=== PATIENT | female | born 1980 ===

== ENCOUNTER 2023-04-15 18:39 | Emergency (ER) | payer SELFPAY ==
[2023-04-15 18:41] VITALS: BP 134/67; PULSE 82; RESP 18; TEMP 36.1; O2SAT 100; BMI 34.4
--- NOTE | 2023-04-15 18:41 | DI.RAD.S_ITS ---
PROCEDURE: XR CHEST 1V INDICATIONS: chest pain TECHNIQUE: One view of the chest was acquired. COMPARISON: None. FINDINGS: Surgical changes and devices: None. Lungs and pleura: Lungs are clear. No pleural effusions or pneumothorax. Mediastinum: Mediastinal contours appear normal. Heart size is normal. Bones and chest wall: No suspicious bony lesions. Overlying soft tissues appear unremarkable. IMPRESSION: No acute cardiopulmonary process. Dictated by: Pee Kelsey M.D. on 04/15/2023 at 19:19 Approved by: Pee Kelsey M.D. on 04/15/2023 at 19:19
[2023-04-15 18:54] LABS: Add Manual Diff / Slide Review NO; Basophils Absolute Auto 100 /uL (0-100); Basophils Percent Auto 0.4 % (0-2); Eosinophils Absolute Auto 100 /uL (0-450); Eosinophils Percent Auto 0.8 % (2-4); Hematocrit 39.4 % (36-46); Hemoglobin 13.3 g/dL (12.0-16.0); Lymphocytes Absolute Auto 4800 /uL (1100-4500); Lymphocytes Percent Auto 30.5 % (25-40); Mean Corpuscular HGB Conc 33.7 % (30-36); Mean Corpuscular Hemoglobin 28.5 PG (26-34); Mean Corpuscular Volume 84.5 fL (80-100); Monocytes Absolute Auto 1000 /uL (0-900); Monocytes Percent Auto 6.1 % (3-14); Neutrophils Absolute Auto 9800 /uL (1500-7000); Neutrophils Percent Auto 62.2 % (50-75); Platelet Count 314 X10^3/uL (150-400); Red Blood Cell Count 4.66 X10^6/uL (4.0-5.2); Red Cell Distribution Width 14.4 % (11.6-14.8); White Blood Cell Count 15.8 X10^3/uL (4.5-11.0)
[2023-04-15 19:02] LABS: Prothrombin Time 11.5 SECONDS (10.1-12.7)
[2023-04-15 19:05] LABS: PTT Partial Thromboplastin Tim 27 SECONDS (26-36)
[2023-04-15 19:07] LABS: Alanine Aminotransferase 19 IU/L (<35); Albumin 4.3 g/dL (3.5-5.0); Albumin Globulin Ratio 1.3 (1.0-2.8); Alkaline Phosphatase 90 U/L (38-126); Aspartate Aminotransferase 26 IU/L (14-36); BUN Creatinine Ratio 23.1 (6-22); Bilirubin Total 0.3 mg/dL (0.2-1.3); Blood Urea Nitrogen 12 mg/dL (7-17); Carbon Dioxide 23 mmol/L (22-32); Chloride 105 mmol/L (98-107); Creatine Kinase 94 U/L (30-135); Estimated Glomerular Filt Rate > 60 mL/min (>60); Globulin 3.4 g/dL (1.7-4.1); Glucose 114 mg/dL (70-100); HEMOLYSIS < 15 (0-50); Lipase 119 U/L (23-300); Magnesium 1.9 mg/dL (1.6-2.3); Potassium 3.3 mmol/L (3.4-5.1); Sodium 137 mmol/L (137-145); Total Protein 7.7 g/dL (6.3-8.2)
[2023-04-15 19:18] LABS: Troponin I < 0.012 ng/mL (0.01-0.034)
--- NOTE | 2023-04-15 19:47 | DI.CT.S_ITS ---
PROCEDURE: CT ANGIO HEAD AND NECK INDICATIONS: seizure and headache and weakness TECHNIQUE: After the administration of intravenous contrast, 1 mm thick sections acquired from the aortic arch through the [place] of [place]. 3-dimensional xdnemia-cgbgcozca-vzzwvlrzxh (MIP) and/or volume rendering reformats were acquired of the central intracranial vasculature and neck separately. For radiation dose reduction, the following was used: automated exposure control, adjustment of mA and/or kV according to patient size. COMPARISON: [facility], CT, CT HEAD/BRAIN WO [facility], 04/15/2023, 19:56. FINDINGS: Image quality: Diagnostic. BRAIN: CSF spaces: Ventricles are normal in size and shape. Basal cisterns are patent. No extra-axial fluid collections. Brain: No significant abnormality of the brain can be seen. Skull and face: Calvarium and facial bones appear intact, without suspicious lesions. Orbits appear normal. Sinuses: Sinuses and mastoids are clear. HEAD CT ANGIOGRAPHY: Anterior circulation: Intracranial internal carotid arteries are normal in size and flow. The flow within the paired anterior cerebral arteries is normal and symmetric. The flow within the middle cerebral arteries is normal and symmetric. The anterior communicating artery is seen. No aneurysms are seen. Posterior circulation: Visualized portions of the vertebral arteries demonstrate normal caliber, and join to form a normal appearing basilar artery. Flow within the posterior cerebral arteries is normal and symmetric. No aneurysms are seen. NECK CT ANGIOGRAPHY: Carotid system: The great vessels demonstrate a conventional anatomy as they arise from the aortic arch. The origins of the common carotid arteries appear patent. The common carotid arteries demonstrate normal caliber and courses. The bifurcation regions are both widely patent. The internal carotid arteries demonstrate normal calibers and courses. Posterior circulation: The origins of the vertebral arteries both appear widely patent. The more superior extracranial portions of both vertebral arteries also demonstrate normal courses and calibers. They join to form a normal appearing basilar artery. Soft tissues: Visualized neck soft tissues demonstrate no suspicious abnormalities. Bones: No suspicious bony lesions. Visualized cervical spine appears normally aligned. IMPRESSION: No acute intracranial abnormality. No hemodynamically significant arterial stenosis or large vessel occlusion in the head or neck. Any quantitative measurements of stenosis were performed using NASCET criteria. Approved by: Aaron Yates M.D. on 04/15/2023 at 20:30
--- NOTE | 2023-04-15 19:47 | DI.CT.S_ITS ---
PROCEDURE: CT HEAD/BRAIN WO CON INDICATIONS: seizure and headache TECHNIQUE: Noncontrast 4.5 mm thick angled axial sections acquired from the foramen magnum to the vertex, with coronal and sagittal reformats. For radiation dose reduction, the following was used: automated exposure control, adjustment of mA and/or kV according to patient size. COMPARISON: None. FINDINGS: Image quality: Mild streak artifact can be seen through the skull base. CSF spaces: Basal cisterns are patent. No extra-axial fluid collections. Ventricles are normal in size and shape. Brain: No midline shift. No intracranial masses or hemorrhage. Wilson-white matter interface is normal. Skull and face: Calvarium and visualized facial bones are intact, without suspicious lesions. Sinuses: Visualized sinuses and mastoids are clear. IMPRESSION: Noncontrast head CT within normal limits. Dictated by: Davis Pace M.D. on 04/15/2023 at 19:21 Approved by: Davis Pace M.D. on 04/15/2023 at 19:22
--- NOTE | 2023-04-15 19:47 | ED_ITS ---
HPI - Seizure <DO Colten Painter Last Filed: 04/16/23 19:32> General Chief Complaint: Seizure Stated Complaint: unresponsive in lobby Time Seen by Provider: 04/15/23 18:53 Source: patient and family Mode of arrival: Wheelchair Limitations: language barrier History of Present Illness HPI Narrative: Patient is a 42-year-old female. She is otherwise healthy. No prior history of seizures. She was in the emergency department waiting room with her son who is waiting to be seen for cut on his arm. It was reported that while she was waiting in the waiting rooms there was a sudden episode of what appeared to be seizure-like activity. The patient became unresponsive. She was found to be pale and diaphoretic and confused by nursing staff. She was immediately brought back to the emergency department. She speaks a small amount of Setswana. I offered the translation line but family stated that they were comfortable translating and declined the offer. Family reported that the patient has no prior history of seizures. There was no loss of bowel or bladder. They are unsure the exact circumstances because this seemed to happened fairly quickly. The patient does not specifically remember the event or remember any prodromal symptoms. She states she is having a headache and also neck pain. She reports no extremity pain. Denies chest pain, shortness of breath or nausea or vomiting. When I evaluated the patient she was alert and oriented but was somewhat confused about the event that brought her here to the ER. Related Data Allergies Allergy/AdvReac Type Severity Reaction Status Date / Time No Known Drug Allergies Allergy Verified 04/15/23 18:43 Review of Systems <DO Colten Painter Last Filed: 04/16/23 19:32> Review of Systems ROS Unobtainable: All systems reviewed & are unremarkable except as noted in HPI and below Patient History <DO Colten Painter Last Filed: 04/16/23 19:32> Social History Smoking Status: Never smoker Smoking Status: Never smoker Substance Use Type: does not use Exam <DO Colten Painter Last Filed: 04/16/23 19:32> Initial Vital Signs Initial Vital Signs: Vital Signs Temperature 97 F L 04/15/23 18:41 Pulse Rate 82 04/15/23 18:41 Respiratory Rate 18 04/15/23 18:41 Blood Pressure 134/67 08/22/23 18:41 Pulse Oximetry 100 04/15/23 18:41 Oxygen Delivery Method Room Air 04/15/23 18:41 Const General: comfortable and No ill appearing HENMT Head: normal to inspection and normocephalic Face and sinus: normal facial exam Mouth: oral mucosae normal Eyes Pupils: PERRL Chest Chest: No crepitus Resp Effort & Inspection: normal respiratory effort Auscultation: clear to auscultation bilaterally Cardio Rate: regular rate Rhythm: regular rhythm GI Inspection: normal to inspection and non-distended Palpation: soft Back/Spine/Pelvis Cervical Spine: cervical muscular tenderness and cervical spinal tenderness Skin General: no rashes or lesions noted Neuro General: patient alert and patient awake Cognition: normal cognition Other: Patient is 5/5 strength bilateral upper extremities. Patient is unable to move lower extremities. She is unable to hold them up off the bed. She reports being able to feel anything on her lower extremities. This seems to extend from the umbilicus down. Extrem General: normal to inspection and capillary refill normal <Piotr Isbell DO - Last Filed: 04/18/23 06:48> Initial Vital Signs Initial Vital Signs: Vital Signs Temperature 97 F L 04/15/23 18:41 Pulse Rate 82 04/15/23 18:41 Respiratory Rate 18 04/15/23 18:41 Blood Pressure 134/67 04/15/23 18:41 Pulse Oximetry 100 04/15/23 18:41 Oxygen Delivery Method Room Air 04/15/23 18:41 Scores <Quincy Proctor DO - Last Filed: 04/16/23 19:32> GCS [place] coma scale eye opening: Spontaneous [place] coma scale verbal response: Orientated [place] coma scale motor response: Obey commands [place] coma scale total score: 15 <Piotr Isbell DO - Last Filed: 04/18/23 06:48> GCS [place] coma scale total score: 15 Course <Quincy Proctor DO - Last Filed: 04/16/23 19:32> Orders Ordered: Discontinued Medications Hydrocodone Bitart/Acetaminophen (Hydrocodone/Acet 5/325 Tablet) 1 tab PO NOW ONE Stop: 04/15/23 23:01 Last Admin: 04/15/23 23:06 Dose: 1 tab Documented By: ELSA Ketorolac Tromethamine (Ketorolac 30 Mg/Ml Vial) 30 mg IV NOW ONE Stop: 04/15/23 22:23 Last Admin: 04/15/23 22:28 Dose: 30 mg Documented By: ELSA Vital Signs Vital signs: Vital Signs - 8 hr 04/16/23 12:00 04/16/23 12:00 Pulse Rate 69 Respiratory Rate 16 Blood Pressure 105/52 L Pulse Oximetry 99 <Piotr Isbell DO - Last Filed: 04/18/23 06:48> Orders Ordered: Discontinued Medications Hydrocodone Bitart/Acetaminophen (Hydrocodone/Acet 5/325 Tablet) 1 tab PO NOW ONE Stop: 04/15/23 23:01 Last Admin: 04/15/23 23:06 Dose: 1 tab Documented By: ELSA Ketorolac Tromethamine (Ketorolac 30 Mg/Ml Vial) 30 mg IV NOW ONE Stop: 04/15/23 22:23 Last Admin: 04/15/23 22:28 Dose: 30 mg Documented By: ELSA Vital Signs Vital signs: Vital Signs - 8 hr 04/16/23 12:00 04/16/23 12:00 Pulse Rate 69 Respiratory Rate 16 Blood Pressure 105/52 L Pulse Oximetry 99 MDM - Seizure <Quincy Proctor DO - Last Filed: 04/16/23 19:32> Lab Data Attestation: I reviewed the patient's lab results. 04/15/23 18:46 04/15/23 18:46 Labs: Lab Results 04/15/23 04/15/23 04/15/23 Range/Units 18:46 18:46 18:46 WBC 15.8 H (4.5-11.0) X10^3/uL RBC 4.66 (4.0-5.2) X10^6/uL Hgb 13.3 (12.0-16.0) g/dL Hct 39.4 (36-46) % MCV 84.5 (80-100) fL MCH 28.5 (26-34) PG MCHC 33.7 (30-36) % RDW 14.4 (11.6-14.8) % Plt Count 314 (150-400) X10^3/uL Neut % (Auto) 62.2 (50-75) % Lymph % (Auto) 30.5 (25-40) % Polk % (Auto) 6.1 (3-14) % Eos % (Auto) 0.8 L (2-4) % Baso % (Auto) 0.4 (0-2) % Neut # (Auto) 9800 H (8499-9011) /uL Lymph # (Auto) 4800 H (9273-1092) /uL [place] # (Auto) 1000 H (0-900) /uL Eos # (Auto) 100 (0-450) /uL Baso # (Auto) 100 (0-100) /uL PT 11.5 (10.1-12.7) SECONDS INR 1.0 (0.9-1.3) APTT 27 (26-36) SECONDS Sodium 137 (137-145) mmol/L Potassium 3.3 L (3.4-5.1) mmol/L Chloride 105 (98-107) mmol/L Carbon Dioxide 23 (22-32) mmol/L BUN 12 (7-17) mg/dL Creatinine 0.52 (0.52-1.04) mg/dL Estimated GFR > 60 (>60) mL/min BUN/Creatinine Ratio 23.1 H (6-22) Glucose 114 H (70-100) mg/dL Calcium 9.0 (8.4-10.2) mg/dL Magnesium 1.9 (1.6-2.3) mg/dL Total Bilirubin 0.3 (0.2-1.3) mg/dL AST 26 (14-36) IU/L ALT 19 (<35) IU/L Alkaline Phosphatase 90 (38-126) U/L Total Creatine Kinase 94 (30-135) U/L Troponin I < 0.012 (0.01-0.034) ng/mL Total Protein 7.7 (6.3-8.2) g/dL Albumin 4.3 (3.5-5.0) g/dL Globulin 3.4 (1.7-4.1) g/dL Albumin/Globulin Ratio 1.3 (1.0-2.8) Lipase 119 (23-300) U/L Imaging Data Chest x-ray: Radiologist's Impression: PROCEDURE:? XR CHEST 1V ? INDICATIONS:? chest pain ? TECHNIQUE:? One view of the chest was acquired.? ? COMPARISON:? None. ? FINDINGS:? ? Surgical changes and devices:? None.? ? Lungs and pleura:? Lungs are clear.? No pleural effusions or pneumothorax.? ? Mediastinum:? Mediastinal contours appear normal.? Heart size is normal.? ? Bones and chest wall:? No suspicious bony lesions.? Overlying soft tissues appear unremarkable.? ? IMPRESSION:? No acute cardiopulmonary process. CT scan - head: Radiologist's Impression: PROCEDURE:? CT HEAD/BRAIN WO CON ? INDICATIONS:? seizure and headache ? TECHNIQUE:? Noncontrast 4.5 mm thick angled axial sections acquired from the foramen magnum to the vertex, with coronal and sagittal reformats.? For radiation dose reduction, the following was used:? automated exposure control, adjustment of mA and/or kV according to patient size.? ? COMPARISON:? None. ? FINDINGS:? Image quality:? Mild streak artifact can be seen through the skull base. ? CSF spaces:? Basal cisterns are patent.? No extra-axial fluid collections.? Ventricles are normal in size and shape.? ? Brain:? No midline shift.? No intracranial masses or hemorrhage.? Wilson-white matter interface is normal.? ? Skull and face:? Calvarium and visualized facial bones are intact, without suspicious lesions.? ? Sinuses:? Visualized sinuses and mastoids are clear.? ? ? IMPRESSION:? Noncontrast head CT within normal limits. CTA - brain/neck: Radiologist's Impression: PROCEDURE:? CT ANGIO HEAD AND NECK ? INDICATIONS:? seizure and headache and weakness ? TECHNIQUE:? After the administration of intravenous contrast, 1 mm thick sections acquired from the aortic arch through the [place] of [place].? 3-dimensional giuqire-jmqmavrtw-akwvdqdcvi (MIP) and/or volume rendering reformats were acquired of the central intracranial vasculature and neck separately. For radiation dose reduction, the following was used:? automated exposure control, adjustment of mA and/or kV according to patient size.? ? COMPARISON:? [facility], CT, CT HEAD/BRAIN WO CON, 04/15/2023, 19:56. ? FINDINGS:? Image quality:? Diagnostic.? ? BRAIN:? CSF spaces:? Ventricles are normal in size and shape.? Basal cisterns are patent.? No extra-axial fluid collections.? ? Brain:? No significant abnormality of the brain can be seen. ? ? ? Skull and face:? Calvarium and facial bones appear intact, without suspicious lesions.? Orbits appear normal.? ? Sinuses:? Sinuses and mastoids are clear.? ? HEAD CT ANGIOGRAPHY:? Anterior circulation:? Intracranial internal carotid arteries are normal in size and flow.? The flow within the paired anterior cerebral arteries is normal and symmetric.? The flow within the middle cerebral arteries is normal and symmetric.? The anterior communicating artery is seen.? No aneurysms are seen.? ? Posterior circulation:? Visualized portions of the vertebral arteries demonstrate normal caliber, and join to form a normal appearing basilar artery.? Flow within the posterior cerebral arteries is normal and symmetric.? No aneurysms are seen.? ? NECK CT ANGIOGRAPHY:? Carotid system:? The great vessels demonstrate a conventional anatomy as they arise from the aortic arch.? The origins of the common carotid arteries appear patent.? The common carotid arteries demonstrate normal caliber and courses.? The bifurcation regions are both widely patent.? The internal carotid arteries demonstrate normal calibers and courses.? ? Posterior circulation:? The origins of the vertebral arteries both appear widely patent.? The more superior extracranial portions of both vertebral arteries also demonstrate normal courses and calibers.? They join to form a normal appearing basilar artery.? ? Soft tissues:? Visualized neck soft tissues demonstrate no suspicious abnormalities.? ? Bones:? No suspicious bony lesions.? Visualized cervical spine appears normally aligned.? IMPRESSION:? No acute intracranial abnormality.? No hemodynamically significant arterial stenosis or large vessel occlusion in the head or neck. ? Any quantitative measurements of stenosis were performed using NASCET criteria.? ECG Data Attestation: I personally reviewed and interpreted this ECG as follows: Interpretation: Sinus rhythm Ventricular rate is 76 Normal axis Normal QRS Normal QTC No ST T wave changes MDM Narrative Medical decision making narrative: I did not specifically witnessed the seizure-like activity in the waiting room however according to bystanders did appear to be like a seizure. She has no history of seizures. There was no loss of bowel or bladder. She is afebrile. When I evaluated the patient she was alert and oriented but she was complaining of neck pain and headache. Her labs are unremarkable. The CT scan of her head and also CT angio of head and neck showed no acute pathology. I did consider Reinier's paralysis however her symptoms were bilateral lower extremities and not involving the upper extremities. She was given Toradol and then a [place]. Her headache and neck pain greatly improved if not almost completely resolved. During her time here in the emergency department the weakness and the decreased sensation that she was having in her lower extremities also resolved. She got to the point where she could lift both of her legs up off the bed. She stated that the sensation was back to normal. She was able to stand at bedside and take a few steps on her own however she was very unsteady with this. She was also complaining of some dizziness. I am unsure whether not this dizziness was related to the [place] or potentially the events that led her to being admitted to the emergency department. Patient does not have a primary care doctor. I feel given the unusual circumstances of her presentation to include never having history of seizures, the bilateral lower extremity weakness (that has now r esolved) the posterior headache and neck pain (that has now resolved) that keeping her here in the emergency department and obtaining an MRI in the morning would be best for her. I did discuss this with the patient and her family. They expressed understanding. Care turned over to Dr. Isbell to follow-up on MRI and disposition. <Piotr Isbell, DO - Last Filed: 04/18/23 06:48> Lab Data Labs: Lab Results 04/15/23 04/15/23 04/15/23 Range/Units 18:46 18:46 18:46 WBC 15.8 H (4.5-11.0) X10^3/uL RBC 4.66 (4.0-5.2) X10^6/uL Hgb 13.3 (12.0-16.0) g/dL Hct 39.4 (36-46) % MCV 84.5 (80-100) fL MCH 28.5 (26-34) PG MCHC 33.7 (30-36) % RDW 14.4 (11.6-14.8) % Plt Count 314 (150-400) X10^3/uL Neut % (Auto) 62.2 (50-75) % Lymph % (Auto) 30.5 (25-40) % Polk % (Auto) 6.1 (3-14) % Eos % (Auto) 0.8 L (2-4) % Baso % (Auto) 0.4 (0-2) % Neut # (Auto) 9800 H (5018-9387) /uL Lymph # (Auto) 4800 H (7315-5916) /uL [place]k # (Auto) 1000 H (0-900) /uL Eos # (Auto) 100 (0-450) /uL Baso # (Auto) 100 (0-100) /uL PT 11.5 (10.1-12.7) SECONDS INR 1.0 (0.9-1.3) APTT 27 (26-36) SECONDS Sodium 137 (137-145) mmol/L Potassium 3.3 L (3.4-5.1) mmol/L Chloride 105 (98-107) mmol/L Carbon Dioxide 23 (22-32) mmol/L BUN 12 (7-17) mg/dL Creatinine 0.52 (0.52-1.04) mg/dL Estimated GFR > 60 (>60) mL/min BUN/Creatinine Ratio 23.1 H (6-22) Glucose 114 H (70-100) mg/dL Calcium 9.0 (8.4-10.2) mg/dL Magnesium 1.9 (1.6-2.3) mg/dL Total Bilirubin 0.3 (0.2-1.3) mg/dL AST 26 (14-36) IU/L ALT 19 (<35) IU/L Alkaline Phosphatase 90 (38-126) U/L Total Creatine Kinase 94 (30-135) U/L Troponin I < 0.012 (0.01-0.034) ng/mL Total Protein 7.7 (6.3-8.2) g/dL Albumin 4.3 (3.5-5.0) g/dL Globulin 3.4 (1.7-4.1) g/dL Albumin/Globulin Ratio 1.3 (1.0-2.8) Lipase 119 (23-300) U/L [facility] Narrative Medical decision making narrative: I did not specifically witnessed the seizure-like activity in the waiting room however according to bystanders did appear to be like a seizure. She has no history of seizures. There was no loss of bowel or bladder. She is afebrile. When I evaluated the patient she was alert and oriented but she was complaining of neck pain and headache. Her labs are unremarkable. The CT scan of her head and also CT angio of head and neck showed no acute pathology. I did consider Reinier's paralysis however her symptoms were bilateral lower extremities and not involving the upper extremities. She was given Toradol and then a [place]. Her headache and neck pain greatly improved if not almost completely resolved. During her time here in the emergency department the weakness and the decreased sensation that she was having in her lower extremities also resolved. She got to the point where she could lift both of her legs up off the bed. She stated that the sensation was back to normal. She was able to stand at bedside and take a few steps on her own however she was very unsteady with this. She was also complaining of some dizziness. I am unsure whether not this dizziness was related to the [place] or potentially the events that led her to being admitted to the emergency department. Patient does not have a primary care doctor. I feel given the unusual circumstances of her presentation to include never having history of seizures, the bilateral lower extremity weakness (that has now resolved) the posterior headache and neck pain (that has now resolved) that keeping her here in the emergency department and obtaining an MRI in the morning would be best for her. I did discuss this with the patient and her family. They expressed understanding. Care turned over to Dr. Isbell to follow-up on MRI and disposition. [0700] (Sukhi) Patient received in sign out from [Hitesh]. I have reviewed the clinical course and performed an independent history and physical exam. SHe continues to improve after MRI, without any significant findings, she is ambulatory and at baseline. No signs of secondary seizure. Informed of no driving for 6 months, importance of follow up, likely neuro referral. Return precautions Discharge Plan Departure Patient Disposition: Home Clinical Impression: Generalized seizure Instructions: DI for Seizure (Not Epilepsy/Seizure Disorder) Activity Restrictions/Additional Instructions: *You have been diagnosed with [first-time seizure. As we discussed your labs and imaging are reassuring and there is no specific intervention or treatment at this time] *What to do: *Please continue to take your regular medications as directed. *Please follow up with your primary care provider in 2-3 days, call for an appointment. Let them know you were seen in the Emergency Department and that we ask that you be seen in follow up. We will electronically transmit a record of today's note if your PCP is in our system NO DRIVING FOR 6 months or until cleared by a neurologist *If you do not have a primary care provider please contact the [facility] Resource line at [phone]. They will ask some questions about your medical history and help get you set up with a doctor in the community. *Return to Emergency Department if you should have any new, worsening or concerning symptoms, such as [fever greater than 101 F, shaking chills, worsening pain, persistent vomiting or other bothersome symptoms] Stand Alone Forms: Patient Portal/API
[2023-04-15 20:22] VITALS: BP 118/59; PULSE 82; RESP 18; O2SAT 99
[2023-04-15 20:54] VITALS: BP 119/62; PULSE 70; O2SAT 98
[2023-04-15 21:30] VITALS: BP 110/60; PULSE 73; O2SAT 99
[2023-04-15] MEDS: KETOROLAC 30 MG/ML VIAL IV (22:28)
[2023-04-15] MEDS: HYDROCODONE/ACET 5/325 TABLET 1 TAB PO (23:06)
--- NOTE | 2023-04-15 23:55 | PC.NURSE ---
[facility] [employer] [facility] note; PT. states she is having dizziness with ambulation RN notified.
[2023-04-16] VITALS (27 sets, daily range): BP systolic 96–139; BP diastolic 52–83; PULSE 62–82; RESP 12–25; O2SAT 95–100
--- NOTE | 2023-04-16 00:19 | DI.MRI.S_ITS ---
PROCEDURE: MR HEAD/BRAIN WO/W CON INDICATIONS: seizure, dizziness, LE weakness TECHNIQUE: Noncontrast axial T1 spin echo, axial T2 fast spin echo, sagittal and axial FLAIR, coronal T2 fast spin echo, axial gradient echo, axial diffusion and ADC through the brain. After the administration of contrast, axial and coronal and sagittal 3D VIBE or T1 spin echo with fat saturation through the brain. No [facility], CT, CT ANGIO HEAD AND NECK, 04/15/2023, 19:56. MPARISON: FINDINGS: Image quality: Excellent. CSF Spaces: Basal cisterns are patent. No extra-axial fluid collections. Ventricles are normal in size and shape. Brain: No midline shift. No intracranial bleeds or masses. No abnormal intracranial enhancement. The brainstem appears normal. Diffusion-weighted images demonstrate no acute ischemic insults. No chronic ischemic insults. Normal intravascular flow voids are present. Skull and face: Calvarial marrow is normal in signal. Orbits appear normal. Sinuses: Sinuses and mastoids appear clear. IMPRESSION: Unremarkable brain MRI with and without contrast. No acute intracranial process. Dictated by: Compa Hanks M.D. on 04/16/2023 at 10:34 Approved by: Compa Hanks M.D. on 04/16/2023 at 10:36
--- NOTE | 2023-04-16 12:32 | PC.NURSE ---
METAL TURNER Note - Patient felt okay on her feet. Just unsteady from waking up just before the ambulation assessment
== END 2023-04-16 13:09 | disposition home or self-care (01) ==
PROVIDERS: Emergency Medicine; Emergency Provider Emergency Medicine
DX: R56.9 Unspecified convulsions (principal); R51.9 Headache, unspecified; R07.9 Chest pain, unspecified
CPT/HCPCS: 70450; 70496; 70498; 70553; 71045; 80053; 82550; 83690; 83735; 84484; 85025; 85610; 85730; 93005; 96374; 99284; J1885; Q9967